=== PATIENT | female | born 1955 | race Caucasian/White ===

== ENCOUNTER → 2016-09-16 | Outpatient (CLI) | payer BC | LOC: BHSO 15:05 | DX: F41.1 Generalized anxiety disorder (principal) ==

== ENCOUNTER → 2016-11-05 | Outpatient (CLI) | payer BC | LOC: BHSO 15:11 | DX: F33.1 Major depressive disorder, recurrent, moderate (principal) ==

== ENCOUNTER → 2017-02-04 | Outpatient (CLI) | payer BC | LOC: BHSO 15:09 | DX: F41.1 Generalized anxiety disorder (principal) ==

== ENCOUNTER → 2017-08-05 | Outpatient (CLI) | payer BC | LOC: BHSO 13:03 | DX: F33.41 Major depressive disorder, recurrent, in partial remission (principal) | CPT/HCPCS: G0463 ==